=== PATIENT | male | born 1950 | race Caucasian/White ===

== ENCOUNTER 2022-06-21 09:20 | Emergency (ER) | payer OTHER, MEDICARE, SELFPAY ==
--- NOTE | 2022-06-21 09:30 | ED.GENADULT ---
HPI - General Adult General Chief complaint: Wound/Laceration Stated complaint: lac from chainsaw left wrist Time Seen by Provider: 06/21/22 09:26 Source: patient Mode of arrival: Family Vehicle Limitations: no limitations History of Present Illness HPI narrative: Patient is a 71-year-old male here for evaluation of a cut to his left forearm that occurred when he was operating a chain saw this morning. He did cover with a bandage. Minimal bleeding. He is no numbness and tingling in his forearm or his hand. He is able to flex and extend without issue. No other injuries from the event. Related Data Allergies Allergy/AdvReac Type Severity Reaction Status Date / Time No Known Drug Allergies Allergy Verified 06/21/22 09:42 Review of Systems Musculoskeletal Musculoskeletal: Reports system reviewed and no additional complaints, except as documented Integumentary/Breasts Skin/Breast: Reports system reviewed and no additional complaints, except as documented Neurologic Neurologic: Reports system reviewed and no additional complaints, except as documented Hematologic/Lymphatic On Anticoagulants: No Patient History Social History marital status: lives independently: Yes Exam Initial Vital Signs Initial Vital Signs: Vital Signs Temperature 97.8 F 06/21/22 09:35 Pulse Rate 73 06/21/22 09:35 Respiratory Rate 16 06/21/22 09:35 Blood Pressure 207/115 H 06/21/22 09:35 Pulse Oximetry 97 06/21/22 09:35 Oxygen Delivery Method 06/21/22 09:35 Const General: cooperative and comfortable Cardio Pulses: radial pulses present on the left Skin Other: 6 cm laceration volar aspect the proximal 3rd of the left forearm ulnar aspect. No active bleeding. Neuro Motor: muscle tone normal throughout Sensory Exam: no sensory deficits noted Other: No sensory deficits ulnar aspect of the left hand Extrem Other: Can flex and extend the left elbow and left wrist without issue. Her hand is unremarkable. Psych Appearance: grossly normal Procedures Laceration Repair Laceration 1: Site: upper extremity Side (If applicable): left Size (cm): 6 Description: linear and irregular Depth: simple, single layer Local Anesthetic: lidocaine 1% and with epi Amount of anesthesia used (mL): 8 Pre-repair: wound explored, irrigated extensively and deep structures intact Skin layer closed with: nylon Skin layer suture size: 4-0 Number of sutures: 7 Technique: simple, interrupted Course Orders Ordered: Discontinued Medications Bacitracin (Bacitracin Oint 0.9 Gm Pckt) 1 applic TOP NOW ONE Stop: 06/21/22 09:31 Last Admin: 06/21/22 09:43 Dose: 1 applic Diphtheria/Tetanus/Acell Pertussis (Tet,Diph,Pertuss(Acell),Vac/Pf 0.5 Ml Syringe) 0.5 ml IM .ONCE ONE Stop: 06/21/22 09:31 Last Admin: 06/21/22 09:42 Dose: 0.5 ml Vital Signs Vital signs: Vital Signs - 8 hr 06/21/22 09:35 Temperature 97.8 F Pulse Rate 73 Respiratory Rate 16 Blood Pressure 207/115 H Pulse Oximetry 97 Oxygen Delivery Method Room Air Medical Decision Making MDM Narrative Medical decision making narrative: Patient's tetanus was updated. The wound was superficial. He is neurovascularly intact. No indication for x-rays. Wound was closed as described above. Given care instructions return precautions. He expressed understanding and agreement. Discharge Plan Departure Patient Disposition: Home Clinical Impression: Laceration Instructions: DI for Laceration Repair Activity Restrictions/Additional Instructions: Keep the bandage that was placed today on for the next 24 hours. After that you can take it off. You can shower like. But topical antibiotic over the area. The stitches do need to be removed in 7-10 days. Return to the emergency department for any new or worsening symptoms.
[2022-06-21 09:35] VITALS: BP 207/115; PULSE 73; RESP 16; TEMP 36.6; O2SAT 97; BMI 28.7
[2022-06-21] MEDS: TET,DIPH,PERTUSS(ACELL),VAC/PF 0.5 ML SYRINGE IM (09:42)
[2022-06-21] MEDS: LIDOCAINE 2% W/EPI INJ 20 ML (09:43)
[2022-06-21] MEDS: BACITRACIN OINT 0.9 GM PCKT 1 APPLIC TOP (09:43)
[2022-06-21 10:03] VITALS: BP 167/80; PULSE 62; RESP 20; O2SAT 97
== END 2022-06-21 10:07 | disposition home or self-care (01) ==
PROVIDERS: Emergency Provider Emergency Medicine
DX: S61.512A Laceration without foreign body of left wrist, initial encounter (principal); W29.3XXA Contact with powered garden and outdoor hand tools and machinery, initial encounter; Z23 Encounter for immunization
CPT/HCPCS: 12002; 90471; 99283; 90715

== ENCOUNTER 2022-07-01 07:13 | Emergency (ER) | payer MEDICARE, OTHER, SELFPAY ==
[2022-07-01 09:09] VITALS: BP 151/82; PULSE 65; RESP 18; TEMP 36.5; O2SAT 97; BMI 28.7
--- NOTE | 2022-07-01 09:32 | ED.RECABL ---
HPI - Recheck/Abnormal Lab/Rx General Chief Complaint: Recheck/Abnormal Lab/Rx Stated Complaint: need to have stiches removed Time Seen by Provider: 07/01/22 09:19 Source: patient Mode of arrival: Ambulatory History of Present Illness HPI narrative: Patient is a 71-year-old healthy male who presents with for suture removal. He was seen and evaluated here on June 21 for left arm laceration with a chain saw. He has had no complaints and good healing Related Data Allergies Allergy/AdvReac Type Severity Reaction Status Date / Time No Known Drug Allergies Allergy Verified 06/21/22 09:42 Review of Systems Review of Systems Narrative: GENERAL: Denies chills,fever HEENT: Denies throat pain RESPIRATORY: Denies dyspnea, cough, wheezing CARDIOVASCULAR: Denies chest pain, palpitations GASTROINTESTINAL: Denies nausea, vomiting MUSCULOSKELETAL: Denies extremity pain, injury SKIN: See HPI NEUROLOGIC: Denies weakness, dizziness, headache, numbness 8 point review of systems is negative except for those stated above and HPI Patient History Social History marital status: lives independently: Yes Smoking Status: Former smoker Smoking Status: Former smoker alcohol intake frequency: a few times a week Alcohol type: hard liquor Substance Use Type: marijuana Exam Initial Vital Signs Initial Vital Signs: Vital Signs Temperature 97.7 F 07/01/22 09:09 Pulse Rate 65 07/01/22 09:09 Respiratory Rate 18 07/01/22 09:09 Blood Pressure 151/82 H 07/01/22 09:09 Pulse Oximetry 97 07/01/22 09:09 Oxygen Delivery Method 07/01/22 09:09 GENERAL: Awake alert pleasant 71-year-old male CARDIOVASCULAR: peripheral pulses in tact, cap refill <2 sec RESPIRATORY: No respiratory distress, speaks in full sentences without difficulty EXTREMITIES: Normal range of motion, no clubbing or edema. Neurovascularly intact NEUROLOGICAL: Cranial nerves II through XII grossly intact. Normal gait and speech. SKIN: Sutures in place no swelling or erythema Course Vital Signs Vital signs: Vital Signs - 8 hr 07/01/22 09:09 Temperature 97.7 F Pulse Rate 65 Respiratory Rate 18 Blood Pressure 151/82 H Pulse Oximetry 97 Oxygen Delivery Method Room Air MDM - Recheck/Abnormal Lab/Rx MDM Narrative Medical decision making narrative: Sutures easily removed Discharge Plan Departure Patient Disposition: Home Clinical Impression: Encounter for removal of sutures Instructions: DI for Suture Removal Activity Restrictions/Additional Instructions: *You have been diagnosed with suture removal *What to do: Apply antibiotic ointment 1-2 times daily to help with healing *Continue to take medications as directed *Follow up with your primary care provider in 2-3 days or call [phone] *Return to ER if you should have increasing redness drainage or swelling or any new, worsening or concerning symptoms Referrals: Miscellaneous,DoctorMD [Primary Care Provider] -
== END 2022-07-01 09:45 | disposition home or self-care (01) ==
PROVIDERS: Emergency Provider Emergency Medicine
DX: Z48.02 Encounter for removal of sutures (principal)
CPT/HCPCS: 99281

== ENCOUNTER → 2022-07-30 06:53 | Outpatient (CLI) | payer MEDICARE, OTHER, SELFPAY ==
[2022-07-30 07:39] LABS: Add Manual Diff / Slide Review NO; Basophils Absolute Auto 0 /uL (0-100); Basophils Percent Auto 0.7 % (0-2); Eosinophils Absolute Auto 100 /uL (0-450); Eosinophils Percent Auto 1.8 % (2-4); Hemoglobin 14.4 g/dL (13.5-17.5); Lymphocytes Absolute Auto 1900 /uL (1100-4500); Lymphocytes Percent Auto 31.6 % (25-40); Mean Corpuscular Hemoglobin 31.1 PG (26-34); Mean Corpuscular Volume 88.7 fL (80-100); Monocytes Absolute Auto 600 /uL (0-900); Neutrophils Absolute Auto 3300 /uL (1500-7000); Neutrophils Percent Auto 55.9 % (50-75); Platelet Count 145 X10^3/uL (150-400); Red Blood Cell Count 4.62 X10^6/uL (4.5-5.9); Red Cell Distribution Width 13.8 % (11.6-14.8); White Blood Cell Count 5.9 X10^3/uL (4.5-11.0)
[2022-07-30 07:53] LABS: Alanine Aminotransferase 20 IU/L (<50); Albumin Globulin Ratio 1.5 (1.0-2.8); Alkaline Phosphatase 72 U/L (38-126); Aspartate Aminotransferase 25 IU/L (17-59); BUN Creatinine Ratio 23.5 (6-22); Bilirubin Total 0.9 mg/dL (0.2-1.3); Blood Urea Nitrogen 19 mg/dL (9-20); Calcium 9.4 mg/dL (8.4-10.2); Carbon Dioxide 27 mmol/L (22-32); Chloride 102 mmol/L (98-107); Cholesterol 110 mg/dL (140-199); Estimated Glomerular Filt Rate > 60 mL/min (>60); Globulin 2.6 g/dL (1.7-4.1); Glucose 104 mg/dL (80-110); HDL Cholesterol 54 mg/dL (40-60); HEMOLYSIS < 15 (0-50); LDL Cholesterol Calculated 44 mg/dL (<100); Potassium 3.9 mmol/L (3.4-5.1); Sodium 137 mmol/L (137-145); Total Protein 6.6 g/dL (6.3-8.2); Triglycerides 59 mg/dL (35-150)
[2022-07-30 08:20] LABS: Prostate Specific Antigen Scrn 0.906 ng/mL (0.1-4.0)
== END ==
PROVIDERS: PCP Family Medicine; Referring Provider Family Medicine; Visit Provider Family Medicine
DX: E11.9 Type 2 diabetes mellitus without complications (principal); I10 Essential (primary) hypertension; Z12.5 Encounter for screening for malignant neoplasm of prostate; E78.5 Hyperlipidemia, unspecified; N40.0 Benign prostatic hyperplasia without lower urinary tract symptoms
CPT/HCPCS: 36415; 80053; 80061; 83036; 84443; 85025; G0103

== ENCOUNTER → 2023-01-10 10:24 | Outpatient (CLI) | payer MEDICARE, OTHER, SELFPAY ==
[2023-01-11 10:19] LABS: Labcorp Hemoglobin (Hb) A1c 6.2 % (4.8-5.6)
== END ==
PROVIDERS: PCP Family Medicine; Referring Provider Family Medicine; Visit Provider Family Medicine
DX: E11.9 Type 2 diabetes mellitus without complications (principal)
CPT/HCPCS: 36415; 83036

== ENCOUNTER → 2023-01-21 10:25 | Outpatient (CLI) | payer MEDICARE, OTHER, SELFPAY ==
[2023-01-21 11:11] LABS: Creatinine Urine Random 154.5 mg/dL
[2023-01-21 11:17] LABS: Microalbumi Creatinin Ratio Ur 9.7 ug/mg CR (<30); Microalbumin Urine Random 1.5 mg/dL (0-1.6)
== END ==
PROVIDERS: PCP Family Medicine; Referring Provider Family Medicine; Visit Provider Family Medicine
DX: I10 Essential (primary) hypertension (principal); E11.9 Type 2 diabetes mellitus without complications
CPT/HCPCS: 82043; 82570

== ENCOUNTER → 2023-02-18 12:55 | Outpatient (CLI) | payer MEDICARE, OTHER, SELFPAY ==
[2023-02-18 16:20] LABS: Appearance Urine UA CLOUDY; Bilirubin Urine UA NEGATIVE (NEGATIVE); Color Urine UA YELLOW; Glucose Urine UA NEGATIVE (Negative); Ketones Urine UA TRACE (NEGATIVE); Leukocyte Esterase Urine UA 2+ (NEGATIVE); Nitrite Urine UA NEGATIVE (Negative); Occult Blood Urine UA 3+ (Negative); Protein Urine UA 2+ (Negative); Specific Gravity Urine UA >=1.030 (1.000-1.035); pH Urine UA 5.5 (4.5-8.0)
[2023-02-18 17:05] LABS: Bacteria Urine Many (>30); Culture Indicated Urine Specimen Cultured; RBC Urine None Seen (0-5/HPF); Squamous Epithelial Cell Urine 1-5 /HPF (0-5/HPF); Transitional Epi Cells Urine 1-5/HPF (0-5/HPF); WBC Urine >100/HPF (0-5/HPF)
== END ==
PROVIDERS: PCP Family Medicine; Referring Provider Family Medicine; Visit Provider Family Medicine
DX: N40.0 Benign prostatic hyperplasia without lower urinary tract symptoms (principal)
CPT/HCPCS: 81001; 87077; 87086; 87186

== ENCOUNTER 2023-05-10 11:03 | Emergency (ER) | payer MEDICARE, OTHER, SELFPAY ==
[2023-05-10] VITALS (27 sets, daily range): BP systolic 61–146; BP diastolic 35–79; PULSE 50–82; RESP 9–18; TEMP 37.1; O2SAT 94–100; BMI 26.2
[2023-05-10] MEDS: TRANEXAMIC ACID 1,000 MG VIAL 1000 MG TOP (11:29)
[2023-05-10] MEDS: SILVER NITRATE STICK 2 EACH TOP (11:30)
[2023-05-10] MEDS: OXYMETAZOLINE NASAL SPRAY 30 ML 2 SPRAYS NASAL (11:30)
--- NOTE | 2023-05-10 11:42 | ED_ITS ---
HPI - General Adult General Chief complaint: Nasal Problem Stated complaint: bloody nose 1 hour Time Seen by Provider: 05/10/23 11:18 Source: patient Mode of arrival: Ambulatory History of Present Illness HPI narrative: 72-year-old male who is here for evaluation of a nosebleed. Today's nosebleed has been going on for the past hour. He has tried Afrin at home without any improvement. Is a 2nd nosebleed that he is had this week. The 1st time he was evaluated by EMS and given Afrin but was not transported to facility. He is not on blood thinners. He denies any trauma. Problems breathing or swallowing. Related Data Home Medications Medication Instructions Recorded Confirmed aspirin 325 mg tablet 325 mg PO DAILY 07/26/22 02/17/23 cholecalciferol (vitamin D3) 50 50 mcg PO DAILY 07/26/22 02/17/23 mcg (2,000 unit) capsule Previous Rx's Medication Instructions Recorded carvedilol 6.25 mg tablet 6.25 mg PO BID #180 tabs 01/10/23 olmesartan 40 mg tablet 40 mg PO DAILY #90 tabs 01/10/23 metformin 500 mg tablet,extended 500 mg PO QID #360 tabs 01/21/23 release 24 hr atorvastatin 10 mg tablet 10 mg PO DAILY #90 tabs 02/07/23 clotrimazole 1 % topical cream 1 applic topical BID #45 grams 02/07/23 sulfamethoxazole 800 1 tab PO BID #20 tabs 02/17/23 mg-trimethoprim 160 mg tablet (Bactrim DS) tamsulosin 0.4 mg capsule 0.4 mg PO BEDTIME #90 caps 02/17/23 terazosin 5 mg capsule 5 mg PO BEDTIME #30 caps 05/02/23 Allergies Allergy/AdvReac Type Severity Reaction Status Date / Time No Known Drug Allergies Allergy Verified 02/17/23 15:27 Review of Systems Eyes Eyes: Reports system reviewed and no additional complaints, except as documented ENT Ears, Nose, Mouth, and Throat: Reports system reviewed and no additional complaints, except as documented Hematologic/Lymphatic On Anticoagulants: No Patient History Medical History BPH (benign prostatic hyperplasia) CAD (coronary artery disease) Chicken pox (~7) Chronic back pain (~1969) Diastolic heart failure (~11/2018) Hearing loss (~1994) Hyperlipidemia Hypertension Measles (~1955) Mumps (~1957) Type 2 diabetes mellitus Well adult exam Surgical History Anesthesia History of back surgery History of heart artery stent (~2017) Family History Father History of heart disease Mother Stroke Sister Diabetes mellitus Social History marital status: lives independently: Yes Smoking Status: Former smoker Smoking Status: Former smoker alcohol intake frequency: a few times a week Alcohol type: hard liquor Substance Use Type: marijuana Exam Initial Vital Signs Initial Vital Signs: Vital Signs Temperature 98.7 F 05/10/23 11:03 Pulse Rate 82 05/10/23 11:03 Respiratory Rate 18 05/10/23 11:03 Blood Pressure 141/74 H 05/10/23 11:03 Pulse Oximetry 99 05/10/23 11:03 Oxygen Delivery Method Room Air 05/10/23 11:03 Const General: cooperative and healthy appearing HENIA Nose: epistaxis (Right nostril) and external nose abnormal Mouth: oral mucosae normal Eyes General: Yes appearance normal, both eyes and all related structures Neuro General: patient alert and patient awake Procedures Epistaxis Control Time Out Performed: Yes Nostril: right Nose Prepped With: oxymetazoline Direct Inspection: yes and anterior source identified Clots Removed by: blowing nose Cautery Used: silver nitrate Device Inserted: hemostatic balloon Device Size: 55 Patient Tolerated Procedure: well Course Orders Ordered: ED Orders 05/10/23 11:59 Complete Blood Count AUTO DIFF Stat Discontinued Medications Sodium Chloride (Normal Saline 0.9%) 1,000 mls @ 1,000 mls/hr IV BOLUS ONE Stop: 05/10/23 12:50 Last Infusion: 05/10/23 13:07 Dose: 0 mls/hr Documented By: Admin: 05/10/23 12:03 Dose: 1,000 mls/hr Documented By: BIMAL Ondansetron HCl (Ondansetron 4 Mg/2 Ml Inj) 4 mg IV NOW ONE Stop: 05/10/23 11:52 Last Admin: 05/10/23 12:06 Dose: 4 mg Documented By: BIMAL Oxymetazoline HCl (Oxymetazoline Nasal [place] 30 Ml) 2 sprays NASAL NOW ONE Stop: 05/10/23 11:19 Last Admin: 05/10/23 11:30 Dose: 2 sprays Documented By: CLAUDIA Silver Nitrate/Potassium Nitrate (Silver Nitrate Stick) 2 each TOP NOW ONE Stop: 05/10/23 11:26 Last Admin: 05/10/23 11:30 Dose: 2 each Documented By: CLAUDIA Tranexamic Acid (Tranexamic Acid 1,000 Mg Vial) 1,000 mg TOP NOW ONE Stop: 05/10/23 11:26 Last Admin: 05/10/23 11:29 Dose: 1,000 mg Documented By: CLAUDIA Vital Signs Vital signs: Vital Signs - 8 hr 05/10/23 11:03 05/10/23 11:46 05/10/23 11:50 Temperature 98.7 F Pulse Rate 82 50 L 56 L Respiratory Rate 18 Blood Pressure 141/74 H Pulse Oximetry 99 99 99 Oxygen Delivery Method Room Air 05/10/23 11:51 05/10/23 11:52 05/10/23 11:53 Temperature Pulse Rate 51 L Respiratory Rate Blood Pressure 65/43 L 61/35 L Pulse Oximetry 99 Oxygen Delivery Method 05/10/23 11:55 05/10/23 11:57 05/10/23 12:00 Temperature Pulse Rate 58 L Respiratory Rate Blood Pressure 90/59 L 98/65 Pulse Oximetry 97 Oxygen Delivery Method 05/10/23 12:00 05/10/23 12:05 05/10/23 12:05 Temperature Pulse Rate 55 L 55 L Respiratory Rate Blood Pressure 128/66 Pulse Oximetry 99 97 Oxygen Delivery Method 05/10/23 12:10 05/10/23 12:10 05/10/23 12:15 Temperature Pulse Rate 58 L Respiratory Rate 16 Blood Pressure 130/68 127/68 Pulse Oximetry 100 Oxygen Delivery Method 05/10/23 12:15 05/10/23 12:20 05/10/23 12:20 Temperature Pulse Rate 54 L 57 L Respiratory Rate 14 11 L Blood Pressure 133/73 Pulse Oximetry 100 99 Oxygen Delivery Method 05/10/23 12:25 05/10/23 12:25 05/10/23 12:30 Temperature Pulse Rate 57 L Respiratory Rate 9 L Blood Pressure 133/76 146/79 H Pulse Oximetry 97 Oxygen Delivery Method 05/10/23 12:30 05/10/23 12:35 05/10/23 12:35 Temperature Pulse Rate 59 L 62 Respiratory Rate 10 L Blood Pressure 136/72 Pulse Oximetry 98 96 Oxygen Delivery Method 05/10/23 12:40 05/10/23 12:40 05/10/23 12:45 Temperature Pulse Rate 62 Respiratory Rate 9 L Blood Pressure 142/73 H 131/68 Pulse Oximetry 95 Oxygen Delivery Method 05/10/23 12:45 05/10/23 12:50 05/10/23 12:50 Temperature Pulse Rate 65 65 Respiratory Rate 13 12 Blood Pressure 128/66 Pulse Oximetry 94 94 Oxygen Delivery Method 05/10/23 12:55 05/10/23 12:55 05/10/23 13:00 Temperature Pulse Rate 65 Respiratory Rate 12 Blood Pressure 123/69 126/69 Pulse Oximetry 95 Oxygen Delivery Method 05/10/23 13:00 05/10/23 13:05 05/10/23 13:10 Temperature Pulse Rate 70 68 68 Respiratory Rate 11 L 12 12 Blood Pressure Pulse Oximetry 96 95 95 Oxygen Delivery Method 05/10/23 13:15 05/10/23 13:20 05/10/23 13:25 Temperature Pulse Rate 68 68 67 Respiratory Rate 13 13 12 Blood Pressure Pulse Oximetry 95 95 95 Oxygen Delivery Method Room Air Medical Decision Making Lab Data 05/10/23 11:59 Labs: Lab Results 05/10/23 Range/Units 11:59 WBC 8.0 (4.5-11.0) X10^3/uL RBC 3.64 L (4.5-5.9) X10^6/uL Hgb 11.6 L (13.5-17.5) g/dL Hct 32.7 L (41-53) % MCV 90.0 (80-100) fL MCH 31.9 (26-34) PG MCHC 35.4 (30-36) % RDW 14.3 (11.6-14.8) % Plt Count 182 (150-400) X10^3/uL Neut % (Auto) 52.9 (50-75) % Lymph % (Auto) 37.5 (25-40) % [place] % (Auto) 7.6 (3-14) % Eos % (Auto) 1.1 L (2-4) % Baso % (Auto) 0.9 (0-2) % Neut # (Auto) 4200 (8636-4206) /uL Lymph # (Auto) 3000 (6241-4135) /uL [place] # (Auto) 600 (0-900) /uL Eos # (Auto) 100 (0-450) /uL Baso # (Auto) 100 (0-100) /uL MDM Narrative Medical decision making narrative: Attempted to provide direct pressure to the right nares without the ability to stop the bleeding. I then identified an anterior source in tried cautery with silver nitrate however this was unsuccessful as well. I then placed a rhino rocket soaked in TXA. We were able to stop the bleeding with this. Patient tolerated this well but did have 1 episode of what appeared to be a vasovagal reaction. He was given fluids. He is observed for a period of time and felt much better. No continued bleeding. Will discharge home with the nasal packing in place. Will have him follow-up with ENT on Friday. He was given return precautions. He expressed understanding and agreement. Discharge Plan Departure Patient Disposition: Home Clinical Impression: Epistaxis Instructions: DI for Nosebleed Activity Restrictions/Additional Instructions: You can continue to take all of your medications as directed. On Friday morning contact the Ear Nose and Throat doctor the number provided below for a follow- up. Until then tried to leave the nasal packing in place. Return to the emergency department for new or worsening symptoms. Prescriptions: No Action carvedilol 6.25 mg tablet 6.25 mg PO BID Qty: 180 3RF Rx Instructions: Due for appt in December olmesartan 40 mg tablet 40 mg PO DAILY Qty: 90 3RF Rx Instructions: Due for appt in December metformin 500 mg tablet extended release 24 hr 500 mg PO QID Qty: 360 1RF Rx Instructions: Take 2 in the AM, Take another 2 in the PM terazosin 5 mg capsule 5 mg PO BEDTIME Qty: 30 2RF aspirin 325 mg tablet 325 mg PO DAILY cholecalciferol (vitamin D3) 50 mcg (2,000 unit) capsule 50 mcg PO DAILY atorvastatin 10 mg tablet 10 mg PO DAILY Qty: 90 3RF Rx Instructions: Start taking 10 mg daily clotrimazole 1 % cream 1 applic topical BID Qty: 45 3RF tamsulosin 0.4 mg capsule 0.4 mg PO BEDTIME Qty: 90 3RF sulfamethoxazole-trimethoprim [Bactrim DS] 800-160 mg tablet 1 tab PO BID Qty: 20 0RF Referrals: Jason Davis MD [Physician] - Osvaldo Reed DO [Primary Care Provider] - Stand Alone Forms: Patient Portal/API
[2023-05-10] MEDS: SODIUM CHLORIDE 0.9% 1,000 ML 1000 ML IV (12:03)
[2023-05-10] MEDS: ONDANSETRON 4 MG/2 ML INJ IV (12:06)
[2023-05-10 12:08] LABS: Add Manual Diff / Slide Review NO; Basophils Absolute Auto 100 /uL (0-100); Basophils Percent Auto 0.9 % (0-2); Eosinophils Absolute Auto 100 /uL (0-450); Eosinophils Percent Auto 1.1 % (2-4); Hematocrit 32.7 % (41-53); Hemoglobin 11.6 g/dL (13.5-17.5); Lymphocytes Absolute Auto 3000 /uL (1100-4500); Lymphocytes Percent Auto 37.5 % (25-40); Mean Corpuscular HGB Conc 35.4 % (30-36); Mean Corpuscular Hemoglobin 31.9 PG (26-34); Monocytes Absolute Auto 600 /uL (0-900); Monocytes Percent Auto 7.6 % (3-14); Neutrophils Absolute Auto 4200 /uL (1500-7000); Neutrophils Percent Auto 52.9 % (50-75); Platelet Count 182 X10^3/uL (150-400); Red Blood Cell Count 3.64 X10^6/uL (4.5-5.9); Red Cell Distribution Width 14.3 % (11.6-14.8)
== END 2023-05-10 14:09 | disposition home or self-care (01) ==
PROVIDERS: Emergency Provider Emergency Medicine; PCP Family Medicine
DX: R04.0 Epistaxis (principal)
CPT/HCPCS: 17250; 30903; 30905; 36415; 85025; 96361; 96374; 99284; J2405

== ENCOUNTER → 2023-08-18 07:54 | Outpatient (CLI) | payer MEDICARE, OTHER, SELFPAY ==
[2023-08-18 08:53] LABS: Add Manual Diff / Slide Review NO; Basophils Absolute Auto 100 /uL (0-100); Basophils Percent Auto 0.9 % (0-2); Eosinophils Absolute Auto 100 /uL (0-450); Eosinophils Percent Auto 1.2 % (2-4); Hematocrit 40.5 % (41-53); Hemoglobin 13.9 g/dL (13.5-17.5); Lymphocytes Absolute Auto 1800 /uL (1100-4500); Lymphocytes Percent Auto 31.5 % (25-40); Mean Corpuscular HGB Conc 34.2 % (30-36); Mean Corpuscular Hemoglobin 30.6 PG (26-34); Mean Corpuscular Volume 89.5 fL (80-100); Monocytes Absolute Auto 500 /uL (0-900); Monocytes Percent Auto 8.4 % (3-14); Neutrophils Absolute Auto 3300 /uL (1500-7000); Platelet Count 121 X10^3/uL (150-400); Red Blood Cell Count 4.52 X10^6/uL (4.5-5.9); Red Cell Distribution Width 13.7 % (11.6-14.8); White Blood Cell Count 5.7 X10^3/uL (4.5-11.0)
[2023-08-18 09:07] LABS: Hemoglobin A1C% w Est Avg Glu 6.3 % (4.0-6.0)
[2023-08-18 09:40] LABS: Alanine Aminotransferase 17 IU/L (<50); Albumin 3.8 g/dL (3.5-5.0); Albumin Globulin Ratio 1.4 (1.0-2.8); Alkaline Phosphatase 65 U/L (38-126); Aspartate Aminotransferase 27 IU/L (17-59); BUN Creatinine Ratio 25.3 (6-22); Bilirubin Total 0.8 mg/dL (0.2-1.3); Blood Urea Nitrogen 21 mg/dL (9-20); Calcium 9.7 mg/dL (8.4-10.2); Carbon Dioxide 29 mmol/L (22-32); Chloride 102 mmol/L (98-107); Estimated Glomerular Filt Rate > 60 mL/min (>60); Globulin 2.8 g/dL (1.7-4.1); Glucose 105 mg/dL (80-110); HEMOLYSIS < 15 (0-50); Potassium 4.9 mmol/L (3.4-5.1); Sodium 137 mmol/L (137-145); Total Protein 6.6 g/dL (6.3-8.2)
== END ==
PROVIDERS: PCP Family Medicine; Referring Provider Family Medicine; Visit Provider Family Medicine
DX: Z00.00 Encounter for general adult medical examination without abnormal findings (principal); I10 Essential (primary) hypertension; E11.9 Type 2 diabetes mellitus without complications; E78.5 Hyperlipidemia, unspecified
CPT/HCPCS: 36415; 80053; 83036; 85025

== ENCOUNTER → 2025-03-08 08:18 | Outpatient (CLI) | payer MEDICARE, OTHER, SELFPAY ==
[2025-03-08 08:58] LABS: Add Manual Diff / Slide Review NO; Basophils Absolute Auto 0 /uL (0-100); Basophils Percent Auto 0.8 % (0-2); Eosinophils Absolute Auto 100 /uL (0-450); Eosinophils Percent Auto 1.4 % (2-4); Hematocrit 40.9 % (41-53); Lymphocytes Absolute Auto 1400 /uL (1100-4500); Lymphocytes Percent Auto 23.5 % (25-40); Mean Corpuscular HGB Conc 34.3 % (30-36); Mean Corpuscular Hemoglobin 31.1 PG (26-34); Mean Corpuscular Volume 90.8 fL (80-100); Monocytes Absolute Auto 500 /uL (0-900); Monocytes Percent Auto 8.7 % (3-14); Neutrophils Absolute Auto 3900 /uL (1500-7000); Neutrophils Percent Auto 65.6 % (50-75); Platelet Count 141 X10^3/uL (150-400); Red Blood Cell Count 4.51 X10^6/uL (4.5-5.9); Red Cell Distribution Width 13.4 % (11.6-14.8); White Blood Cell Count 5.9 X10^3/uL (4.5-11.0)
[2025-03-08 09:19] LABS: Alanine Aminotransferase 21 IU/L (<50); Albumin 4.2 g/dL (3.5-5.0); Alkaline Phosphatase 52 U/L (38-126); Aspartate Aminotransferase 31 IU/L (17-59); BUN Creatinine Ratio 23.3 (6-22); Blood Urea Nitrogen 20 mg/dL (9-20); Calcium 9.6 mg/dL (8.4-10.2); Carbon Dioxide 29 mmol/L (22-32); Chloride 102 mmol/L (98-107); Cholesterol 124 mg/dL (140-199); Estimated Glomerular Filt Rate > 60 mL/min (>60); Globulin 2.1 g/dL (1.7-4.1); Glucose 123 mg/dL (70-99); HDL Cholesterol 58 mg/dL (40-60); HEMOLYSIS < 15 (0-50); LDL Cholesterol Calculated 52 mg/dL (<100); Potassium 4.5 mmol/L (3.4-5.1); Sodium 136 mmol/L (137-145); Total Protein 6.3 g/dL (6.3-8.2); Triglycerides 72 mg/dL (35-150)
[2025-03-08 09:20] LABS: Hemoglobin A1C% w Est Avg Glu 5.9 % (4.0-6.0)
[2025-03-08 09:56] LABS: Prostate Specific Antigen Scrn 0.925 ng/mL (0.1-4.0)
== END ==
PROVIDERS: PCP Family Medicine; Referring Provider Family Medicine; Visit Provider Family Medicine
DX: E78.5 Hyperlipidemia, unspecified (principal); E11.9 Type 2 diabetes mellitus without complications; Z12.5 Encounter for screening for malignant neoplasm of prostate; N40.0 Benign prostatic hyperplasia without lower urinary tract symptoms; I25.10 Atherosclerotic heart disease of native coronary artery without angina pectoris; D64.9 Anemia, unspecified
CPT/HCPCS: 36415; 80053; 80061; 83036; 85025; G0103

== ENCOUNTER → 2025-09-05 10:36 | Outpatient (CLI) | payer MEDICARE, OTHER, SELFPAY ==
[2025-09-05 11:05] LABS: Hemoglobin A1C% w Est Avg Glu 5.9 % (4.0-6.0)
== END ==
PROVIDERS: PCP Family Medicine; Referring Provider Family Medicine; Visit Provider Family Medicine
DX: E11.9 Type 2 diabetes mellitus without complications (principal)
CPT/HCPCS: 36415; 83036